=== PATIENT | female | born 1950 | race Caucasian/White ===

== ENCOUNTER → 2021-03-09 | Outpatient (CLI) | payer OTHER ==
--- NOTE | 2021-03-09 16:19 | REP ---
INDICATION: PVD. COMPARISON: None. TECHNIQUE: Unilateral right lower extremity arterial Doppler ultrasound. FINDINGS: Noncompressible lower extremity vessels precluded ankle brachial index determine a melvin in the right leg. Mild plaquing is seen on two-dimensional scanning. No direct evidence of stenosis or occlusion. Relatively normal triphasic and biphasic arterial Doppler waveforms are noted in the right lower extremity. Right lower extremity arterial Doppler velocity chart: Right ASSIGNMENT DESK EDITOR PSV 114 cm/S Profundal 66 Proximal SFA 109 Mid SFA 112 Distal SFA 86 Popliteal 54 Proximal MERRICK 76 Tibial-peroneal trunk 35 Proximal SFDC ARCHITECT 59 Distal SFDC ARCHITECT 85 Distal MERRICK 83 IMPRESSION: No high-grade stenosis or occlusion seen. <Electronically signed by Carlos Alberto Rebolledo > 03/09/21 0171
== END ==
LOC: M RAD 12:37
PROVIDERS: ATTEND Internal Medicine
DX: I73.9 Peripheral vascular disease, unspecified (principal)

== ENCOUNTER 2021-12-27 14:42 | Emergency (ER) | payer MEDICARE, OTHER ==
[~2021-12-27] VITALS: Ht 170.2 cm; Wt 118.2 kg
[2021-12-27] MEDS ORDERED: DICY10CA13 (15:10)
[2021-12-27] MEDS ORDERED: LISI5TAB11 (15:10)
[2021-12-27] MEDS ORDERED: LOPE1CAP5 (15:10)
[2021-12-27] MEDS ORDERED: CITA10TA7 (15:10)
[2021-12-27] MEDS ORDERED: FOLI1TAB11 (15:10)
[2021-12-27] MEDS ORDERED: hydrOXYzine 25 MG TAB PO ONE (19:25)
[2021-12-27] MEDS ORDERED: HYDR-3363 PO (19:53)
[2021-12-27 20:15] VITALS: BP 180/82
== END 2021-12-27 20:18 | disposition home or self-care (01) ==
LOC: M ED 14:42
DX: F41.9 Anxiety disorder, unspecified (principal); I10 Essential (primary) hypertension; K21.9 Gastro-esophageal reflux disease without esophagitis; Z79.899 Other long term (current) drug therapy; Z88.0 Allergy status to penicillin; Z88.1 Allergy status to other antibiotic agents; Z88.2 Allergy status to sulfonamides; Z88.5 Allergy status to narcotic agent; Z88.8 Allergy status to other drugs, medicaments and biological substances